=== PATIENT | female | born 1990 | race Caucasian/White ===

== ENCOUNTER 2023-02-22 07:59 | Inpatient (IN) ==
[2023-02-22] MEDS ORDERED: LIDOCAINE 1% LOCAL 20 ML VIAL INFIL PRN (08:01)
[2023-02-22] MEDS ORDERED: OXYTOCIN 30 UNITS/500 ML BAG IV PRN (08:01)
[2023-02-22 08:43] LABS: Hematocrit (blood only) 41.8 % (37.0-47.0); Hemoglobin 15.2 g/dl (12.0-16.0); Mean Corpuscular Hemoglobin 31.5 pg (25.0-34.0); Mean Corpuscular Hgb Conc 36.4 g/dL (32.0-36.0); Mean Corpuscular Volume 86.7 fL (80.0-100.0); Mean Platelet Volume 11.6 fL (9.4-12.4); Platelet Count 180 K/uL (130-400); RDW Coefficient of Variation 13.6 % (11.5-14.5); RDW Standard Deviation 42.8 fL (36.4-46.3); Red Blood Count 4.82 M/uL (4.20-5.40); White Blood Count 11.72 K/ul (4.8-10.8)
[2023-02-22] MEDS: LACTATED RINGER'S 1,000 ML IV PRN ×3 (09:43→22:04)
[2023-02-22] MEDS: OXYTOCIN 30 UNITS/500 ML BAG IV PRN (09:44)
--- NOTE | 2023-02-22 10:38 | History & Physical Report ---
Date of Service February 22, 2023 Assessment & Plan (1) Insulin controlled gestational diabetes mellitus (GDM) during : Plan: IUP at 39-6/7 weeks who presents for induction of labor because of GDM on insulin. BSG's Q 2hrs while in labor. Cervical balloon delivered early this morning, and we will begin Pitocin induction of labor. Patient is hoping to have an unmedicated delivery however if epidural analgesia is requested we will accommodate her. Anticipate vaginal . Admission and Anticipated Discharge Date Admission Date: February 22, 2023 History of Present Illness Primary Care Provider: MOLLY Mcpherson Patient is a 32-year-old 1 P0 female EDC of 02/23/2023 who presents for induction of labor because of GDM on insulin. Blood sugar sugars have been well controlled during the and testing has been reassuring. The infant is in the 97th percentile for estimated weight on the most recent growth scan. The was also complicated by polyhydramnios But it is in the mild range. GBS is negative. She received cervical balloon last evening for unfavorable cervix. The balloon delivered this morning at approximately 830. Allergies Allergy/AdvReac Type Severity Reaction Status Date / Time No Known Allergies Allergy Verified 02/21/23 10:41 Home Medications Medication Instructions Recorded Confirmed Type prenat.vits,aliza,[id number] 1 tab PO DAILY 07/01/22 02/22/23 History acetone (urine) test (Ketone Urine #50 ea 10/08/22 02/21/23 Rx Test strips) blood sugar diagnostic (OneTouch #150 ea 10/08/22 02/21/23 Rx Verio test strips) blood-glucose meter (OneTouch #1 ea 10/08/22 02/21/23 Rx Verio Reflect Meter) lancets 33 gauge (OneTouch Delica #150 ea 10/08/22 02/21/23 Rx Lancets) pen needle, diabetic 32 gauge x #100 ea 10/13/22 02/21/23 Rx 5/32" (BD Yolette 2nd Gen Pen Needle) insulin NPH isoph U-100 human 100 10 unit (0.1 mL) subcut .COMPLEX 10/15/22 02/22/23 Rx unit/mL (3 mL) subcutaneous pen #15 mL (Novolin N FlexPen) Patient History Medical History (Updated 02/22/23 @ 08:13 by Gudelia Villagomez RN) Chronic cholecystitis Temporomandibular joint disorder + clicking, hx of locking ("months ago") Surgical History Hx laparoscopic cholecystectomy (05/28/21) Laparoscopic Cholecystectomy Dr. Yoo 05/28/2021 [place] teeth extracted Family History (Updated 02/22/23 @ 08:18 by Gudelia Villagomez RN) Mother Ovarian cancer Diabetes Hypertension Stroke Father Hypertension Social History (Updated 07/01/22 @ 10:47 by Yenni Babcock) Smoking Status: Never smoker Second Hand Exposure: Yes ( A CHILD); Do You Dip or Chew Tobacco: No; Hx Alcohol Use: Yes Alcohol type: beer and hard liquor Hx Substance Use: No Preferred Language: Citizen Of [place] Communication Ability: Effective Visual Impairment: No Limitations Python Django Developer Required: No Beliefs That Will Affect Care: None marital status: marital status details: Prince [phone] Current Living Situation: Spouse Current Living Situation Comment: lives with spouse, no pets. current occupational status: employed current occupation: Ortho How many Children do You have: 0 Other Information That Helps Us Care for You: No Feels Safe at Home: Yes Safety Concerns: Feels Safe At This Time Assistive Devices: None Review of Systems All systems reviewed & are unremarkable except as noted in HPI & below Physical Exam Constitutional: WD/WN, vitals as above Psychiatric: A+Ox3, euthymic affect Genitourinary: OB Exam Abdomen: + vertex and + estimated weight (8-9 pounds); no irregular contractions Manual OB Exam: + cervical dilation 3 cm, + cervical effacement 70% and + station -2 OB Exam Monitor Tracing: + external FHT monitor used, + external uterine monitor used, + category I and + normal FHT variability Results & Data Vital Signs (Past 12 Hours) Vital Signs Temp Pulse Resp BP 02/22/23 08:21 98.2 F 02/22/23 10:15 18 02/22/23 10:15 18 02/22/23 09:46 100 H 121/69 02/22/23 08:26 112 H 113/71 Coding Level of Care Code None Diagnoses Insulin controlled gestational diabetes mellitus (GDM) during O24.414
[2023-02-22] MEDS ORDERED: BUTORPHANOL TARTRATE 1 MG/ML VIAL IV PRN (19:34)
[2023-02-22] MEDS ORDERED: fentaNYL citrate PF 100 MCG/2 ML VIAL ONE (22:14)
[2023-02-22] MEDS ORDERED: LIDOCAINE 2%/EPINEPHRINE 1:200,000 20 ML PF ONE (22:14)
[2023-02-22] MEDS ORDERED: SODIUM CHLORIDE 0.9% PF INJ 10 ML VIAL ONE (22:14)
[2023-02-22] MEDS ORDERED: ePHEDrine sulfate 50 MG/ML AMP ONE (22:14)
[2023-02-22] MEDS ORDERED: BUPIVACAINE 0.25% PF 30 ML VIAL ONE (22:14)
[2023-02-22] MEDS ORDERED: fentaNYL 2MCG/ML ROPIVACAINE 1.25MG/ML 100 ML BAG EPI ONE (22:15)
[2023-02-22] MEDS ORDERED: NALOXONE HCL 0.4 MG/1 ML VIAL/CARP IV PRN (22:32)
[2023-02-22] MEDS ORDERED: fentaNYL citrate PF 100 MCG/2 ML VIAL EPI STA (22:32)
[2023-02-22] MEDS ORDERED: BUPIVACAINE 0.25% PF 30 ML VIAL EPI STA (22:32)
[2023-02-22] MEDS ORDERED: fentaNYL 2MCG/ML ROPIVACAINE 1.25MG/ML 100 ML BAG EPI PRN (22:32)
[2023-02-22] MEDS ORDERED: NALBUPHINE HCL INJ 10 MG/ML AMP IV PRN (22:32)
[2023-02-22] MEDS ORDERED: NALOXONE HCL 1 MG in SODIUM CHLORIDE 0.9% 1000ML 1,000 ML IV PRN (22:32)
[2023-02-22] MEDS ORDERED: fentaNYL citrate PF 100 MCG/2 ML VIAL EPI PRN (22:32)
[2023-02-22] MEDS ORDERED: ONDANSETRON INJ 2 MG/ML 2 ML VIAL IV PRN (22:32)
[2023-02-22] MEDS ORDERED: ROPIVACAINE 0.5% PF 5 MG/ML 20 ML VIAL EPI PRN (22:32)
[2023-02-22] MEDS ORDERED: LIDOCAINE 2% MPF LOCAL 5 ML VIAL EPI PRN (22:32)
[2023-02-22] MEDS ORDERED: BUPIVACAINE 0.25% PF 30 ML VIAL EPI PRN (22:32)
[2023-02-22] MEDS ORDERED: SODIUM CHLORIDE 0.9% PF INJ 10 ML VIAL EPI STA (22:32)
[2023-02-22] MEDS ORDERED: LIDOCAINE 2%/EPINEPHRINE 1:200,000 20 ML PF EPI STA (22:32)
[2023-02-22] MEDS ORDERED: SODIUM CHLORIDE 0.9% PF INJ 10 ML VIAL EPI PRN (22:32)
[2023-02-22] MEDS ORDERED: ePHEDrine sulfate 50 MG/ML AMP IV PRN (22:32)
[2023-02-22] MEDS ORDERED: diphenhydrAMINE 50 MG/ML VIAL IV PRN (22:32)
--- NOTE | 2023-02-22 22:32 | Anesthesiology Consultation ---
Date of Service February 22, 2023 Assessment & Plan ASA ASA3 Proposed Anesthesia Anesthesia Type: Labor Epidural Risk / Benefits Reviewed With: PT / POA / Parent / Guardian, Accepts Plan and Informed Consent Obtained History Height/Weight Height: 5 ft 5 in Weight: 114.759 kg Allergies Allergy/AdvReac Type Severity Reaction Status Date / Time No Known Allergies Allergy Verified 02/21/23 10:41 Medications Home Medications Medication Instructions Recorded Confirmed Last Taken prenat.vits,aliza,[id number] 1 tab PO DAILY 07/01/22 02/22/23 02/21/23 21:00 acetone (urine) test (Ketone Urine #50 ea 10/08/22 02/21/23 Unknown Test strips) blood sugar diagnostic (OneTouch #150 ea 10/08/22 02/21/23 Unknown Verio test strips) blood-glucose meter (OneTouch #1 ea 10/08/22 02/21/23 Unknown Verio Reflect Meter) lancets 33 gauge (OneTouch Delica #150 ea 10/08/22 02/21/23 Unknown Lancets) pen needle, diabetic 32 gauge x #100 10/13/22 02/21/23 Unknown /32" (BD Yolette 2nd Gen Pen Needle) insulin NPH isoph U-100 human 100 10 unit (0.1 mL) subcut .COMPLEX 10/15/22 02/22/23 02/21/23 21:00 unit/mL (3 mL) subcutaneous pen #15 mL (Novolin N FlexPen) Active Medications Generic Name Dose Route Start Last Admin Trade Name Freq PRN Reason Stop Dose Admin Butorphanol Tartrate 1 mg 02/22/23 19:34 02/22/23 19:55 Butorphanol Tartrate 1 Mg/Ml Vial IV 03/24/23 19:33 1 mg Q2H PRN Administration Pain Oxytocin 30 units in 500 mls @ 15 mls/hr 02/22/23 08:01 02/22/23 18:56 Pitocin IV 02/24/23 08:00 0.9 units/hr .Q24H PRN 15 mls/hr Labor Induction/Augmentation Titration Protocol 0.9 UNITS/HR Lactated Ringer's 1,000 mls @ 125 mls/hr 02/22/23 08:01 02/22/23 22:43 Lr IV 02/24/23 08:00 125 mls/hr .Q8H PRN Infusion L&D Protocol Protocol Past Medical History Medical History Chronic cholecystitis Temporomandibular joint disorder + clicking, hx of locking ("months ago") Exercise / Class Metabolic Activity II 4-5 Yardwork/Stairs/Walk up hill Past Family History Family History Mother Ovarian cancer Diabetes Hypertension Stroke Father Hypertension Past Surgical History Surgical History Hx laparoscopic cholecystectomy (05/28/21) Laparoscopic Cholecystectomy Dr. Yoo 05/28/2021 [place] teeth extracted Past Anesthesia History No Hx of Anesthesia Complications and No Family Hx of Anesthesia Complications History of PONV No Hx of PONV and No Hx of Motion Sickness Social History Smoking Status: Never smoker Do You Dip or Chew Tobacco: No Hx Alcohol Use: Yes Alcohol type: beer and hard liquor alcohol intake frequency: a few times a month Hx Substance Use: No Review of Systems denies fever/cough/ colds/ chest pain/ SOB/ QUIANA denies QUIANA Physical Exam Vital Signs Last Vital Signs Temp 36.7 C 02/22/23 21:00 Pulse 88 02/22/23 23:12 Resp 18 02/22/23 21:00 BP 102/59 L 02/22/23 23:12 Pulse Ox 99 02/22/23 23:12 ENMT Mouth: no TMJ abnormality and no dentition abnormality Thyromental Distance: > or= 3.5 Finger Breadths Mallampati Class: II Neck neck extension not limited Respiratory normal respiratory effort; no respiratory distress Auscultation: lungs clear to auscultation bilaterally Cardiovascular Rate/Rhythm: regular rate and regular rhythm Neurologic moves all extremities Psychiatric Orientation: alert and oriented x 3 Testing Laboratory Results 02/22/23 08:17 Blood Type B Positive 02/22/23 08:17 Antibody Screen NEGATIVE 02/22/23 08:17 02/22/23 02/22/23 20:58 18:39 POC Glucose 80 84
[2023-02-23] MEDS: LACTATED RINGER'S 1,000 ML IV PRN ×2 (01:51→11:18)
[2023-02-23] MEDS ORDERED: CALCIUM CARBONATE 500 MG CHEWABLE TAB PO ONE (05:48)
[2023-02-23] MEDS: OXYTOCIN 30 UNITS/500 ML BAG IV PRN (07:15)
--- NOTE | 2023-02-23 07:20 | Anesthesia Procedure Note ---
Date of Service February 23, 2023 Anesthesia Epidural Re-Dose Vital Signs Temp Pulse Resp BP Pulse Ox 36.9 C 129 H 18 113/63 99 02/23/23 05:00 02/23/23 07:24 02/23/23 06:30 02/23/23 07:24 02/23/23 07:22 Notes Pain Intensity: 4 Dilatation (cm): 8.0 Effacement (%): 100 Called by nursing to evaluate epidural as the patient is having increased pain. The epidural was re-dosed with the following medications (all medications via epidural route) after negative aspiration of the epidural catheter for CSF/HEME 1.2% lidocaine and 0.2% ropivacaine 7ml After Epidural Re-Dose Mental Status: alert / awake / arousable Pain: improving with treatment Airway Patency, RR, SpO2: stable & adequate BP & HR: stable & adequate
[2023-02-23] MEDS ORDERED: SODIUM CHLORIDE 0.9% 250 ML IV PRN (07:56)
[2023-02-23] MEDS ORDERED: ROPIVACAINE 0.5% 5 MG/ML 30 ML VIAL ONE (09:14)
[2023-02-23] MEDS ORDERED: LIDOCAINE 2%/EPINEPHRINE 1:200,000 20 ML PF ONE ×2 (09:14→11:39)
[2023-02-23] MEDS ORDERED: AZITHROMYCIN 500 MG in DEXTROSE 5% 250 ML IV STA (11:04)
--- NOTE | 2023-02-23 11:04 | Obstetrical Progress Note ---
Date of Service February 23, 2023 Assessment & Plan Admission and Anticipated Discharge Date Admission Date: February 22, 2023 Nisha Ge is a 32-year-old G1, P0 currently at 40 weeks gestational age presented for induction of labor yesterday. Patient has a cervical Briggs placed on Tuesday. She was started on oxytocin yesterday morning and underwent rupture of membranes. Patient progressed into labor to 8 cm with still high station noted. No descent has been significantly appreciated. Attempt at maternal positioning to improve descent has not been beneficial. Patient is requesting proc eeding with a primary section due to maternal exhaustion. There is also been a little descent noted and likelihood of a vaginal delivery is looking remote. Discussed the procedure in detail including risks and benefits. We discussed increased risks associated with section following induction of labor. Consent forms reviewed and signed. We will give patient Ancef and azithromycin. Results & Data Vital Signs (Past 12 Hours) Vital Signs Temp Pulse Resp BP Pulse Ox 02/23/23 10:57 116 H 100 02/23/23 10:52 118 H 99 02/23/23 10:47 116 H 98 02/23/23 10:42 109 H 100 02/23/23 10:37 113 H 100 02/23/23 10:30 20 02/23/23 10:30 20 02/23/23 10:32 118 H 100 02/23/23 10:27 111 H 100 02/23/23 10:00 20 02/23/23 10:00 20 02/23/23 10:05 37.8 C H 02/23/23 10:22 111 H 99 02/23/23 10:17 107 H 100 02/23/23 10:12 110 H 100 02/23/23 10:07 107 H 100 02/23/23 10:08 105 H 127/71 02/23/23 10:02 114 H 100 02/23/23 09:57 109 H 100 02/23/23 09:30 20 02/23/23 09:30 20 02/23/23 09:52 121 H 100 02/23/23 09:47 119 H 99 02/23/23 09:42 117 H 100 02/23/23 09:37 115 H 100 02/23/23 09:32 113 H 100 02/23/23 09:31 115 H 119/73 02/23/23 09:27 118 H 100 08/16/23 09:00 18 02/23/23 09:00 18 02/23/23 09:22 103 H 100 02/23/23 09:17 120 H 100 02/23/23 09:12 104 H 100 02/23/23 09:11 92 H 111/60 02/23/23 09:07 102 H 100 02/23/23 09:02 87 100 02/23/23 08:57 84 100 02/23/23 08:52 92 H 100 02/23/23 08:51 93 H 110/67 02/23/23 08:47 88 100 02/23/23 08:42 96 H 100 02/23/23 08:39 18 02/23/23 08:39 37.4 C 18 02/23/23 08:37 113 H 100 02/23/23 08:32 122 H 100 02/23/23 08:31 134 H 119/68 02/23/23 08:27 131 H 100 02/23/23 08:22 118 H 100 02/23/23 08:17 109 H 100 02/23/23 08:12 89 100 02/23/23 08:00 18 02/23/23 08:00 18 02/23/23 08:07 95 H 100 02/23/23 08:02 105 H 100 02/23/23 07:57 125 H 100 02/23/23 07:52 128 H 100 02/23/23 07:47 106 H 100 02/23/23 07:30 18 02/23/23 07:30 18 02/23/23 07:42 122 H 100 02/23/23 07:09 18 02/23/23 07:09 36.9 C 18 02/23/23 07:37 120 H 100 02/23/23 07:32 122 H 100 02/23/23 07:31 137 H 107/56 L 02/23/23 07:27 135 H 117/55 L 99 02/23/23 07:24 129 H 113/63 02/23/23 07:22 99 02/23/23 07:22 117 H 02/23/23 07:22 114 H 117/74 02/23/23 07:20 112 H 115/64 02/23/23 07:17 124 H 100 02/23/23 07:14 118 H 109/58 L 02/23/23 07:12 118 H 100 02/23/23 07:07 119 H 99 02/23/23 07:02 121 H 100 02/23/23 06:58 142 H 122/75 02/23/23 06:57 112 H 100 02/23/23 06:52 97 H 99 02/23/23 06:47 114 H 100 02/23/23 06:30 18 02/23/23 06:30 18 02/23/23 06:44 108 H 125/77 02/23/23 06:42 103 H 100 02/23/23 06:37 137 H 100 02/23/23 06:32 134 H 100 02/23/23 06:29 133 H 115/78 02/23/23 06:27 142 H 100 02/23/23 06:22 100 H 100 02/23/23 06:00 20 02/23/23 06:00 20 02/23/23 06:17 109 H 100 02/23/23 06:14 117 H 117/81 02/23/23 06:12 115 H 97 02/23/23 06:07 120 H 100 02/23/23 06:02 111 H 100 02/23/23 05:58 112 H 110/56 L 02/23/23 05:57 96 H 99 02/23/23 05:52 114 H 99 02/23/23 05:30 18 02/23/23 05:30 18 02/23/23 05:47 91 H 99 02/23/23 05:43 111 H 113/58 L 02/23/23 05:42 101 H 100 02/23/23 05:37 96 H 100 02/23/23 05:32 90 99 02/23/23 05:29 96 H 119/66 02/23/23 05:27 113 H 99 02/23/23 05:22 114 H 99 02/23/23 05:17 100 H 99 02/23/23 05:13 96 H 97/52 L 02/23/23 05:12 101 H 98 02/23/23 05:07 93 H 99 02/23/23 05:00 18 02/23/23 05:00 36.9 C 18 02/23/23 05:02 98 H 100 02/23/23 04:30 20 02/23/23 04:30 20 02/23/23 04:59 101 H 107/56 L 02/23/23 04:57 94 H 99 02/23/23 04:52 96 H 99 02/23/23 04:47 101 H 100 02/23/23 04:42 107 H 100 02/23/23 04:37 116 H 100 02/23/23 04:32 114 H 100 02/23/23 04:28 107 H 138/80 02/23/23 04:27 106 H 100 02/23/23 04:22 97 H 98 02/23/23 04:17 97 H 100 02/23/23 04:14 99 H 130/70 02/23/23 04:12 98 H 98 02/23/23 04:07 96 H 99 02/23/23 04:02 115 H 99 02/23/23 03:58 100 H 111/64 02/23/23 03:57 91 H 99 02/23/23 03:52 104 H 100 02/23/23 03:47 85 99 02/23/23 03:43 85 110/61 02/23/23 03:42 84 98 02/23/23 03:37 79 98 02/23/23 03:30 18 02/23/23 03:30 18 02/23/23 03:32 99 H 100 02/23/23 03:28 88 108/61 02/23/23 03:27 79 98 02/23/23 03:22 86 98 02/23/23 03:17 81 99 02/23/23 03:13 88 102/57 L 02/23/23 03:12 82 99 02/23/23 03:07 99 H 108/55 L 99 02/23/23 03:02 83 98 02/23/23 03:00 36.9 C 83 18 272/185 H 02/23/23 02:57 78 99 02/23/23 02:52 81 99 02/23/23 02:47 83 100 02/23/23 02:42 86 99 02/23/23 02:30 18 02/23/23 02:30 18 02/23/23 02:37 78 100 02/23/23 02:32 87 100 02/23/23 01:57 18 02/23/23 01:57 18 02/23/23 02:30 106 H 126/78 87 L 02/23/23 02:27 90 99 02/23/23 02:22 100 H 100 02/23/23 02:17 125 H 100 02/23/23 02:14 87 121/67 02/23/23 02:12 122 H 100 02/23/23 02:07 100 H 100 02/23/23 02:02 114 H 100 02/23/23 01:59 122 H 109/83 02/23/23 01:57 101 H 100 02/23/23 01:52 92 H 100 02/23/23 01:47 110 H 100 02/23/23 01:44 80 109/51 L 02/23/23 01:42 81 99 02/23/23 01:30 18 02/23/23 01:30 18 02/23/23 01:37 74 100 02/23/23 01:00 18 02/23/23 01:00 36.8 C 18 02/23/23 01:32 80 100 02/23/23 01:28 70 98/53 L 02/23/23 01:27 73 97 02/23/23 01:22 75 99 02/23/23 01:17 84 98 02/23/23 01:15 78 102/53 L 02/23/23 01:00 18 02/23/23 01:00 18 02/23/23 01:12 97 H 97 02/23/23 01:07 69 97 02/23/23 01:02 68 99 02/23/23 00:59 80 94/52 L 02/23/23 00:57 70 98 02/23/23 00:52 70 99 02/23/23 00:47 71 100 02/23/23 00:44 81 93/66 L 02/23/23 00:42 75 100 02/23/23 00:37 77 100 02/23/23 00:32 77 100 02/23/23 00:30 85 100/59 L 02/23/23 00:27 90 100 02/23/23 00:22 108 H 100 02/23/23 00:17 103 H 100 02/23/23 00:15 90 123/61 02/23/23 00:12 93 H 100 02/23/23 00:00 18 02/23/23 00:00 18 02/23/23 00:07 81 99 02/23/23 00:02 98 H 100 02/22/23 23:59 82 99/56 L 02/22/23 23:57 71 99 02/22/23 23:30 18 02/22/23 23:30 18 02/22/23 23:52 75 99 02/22/23 23:47 83 99 02/22/23 23:45 89 96/52 L 02/22/23 23:42 76 99 02/22/23 23:37 85 99 02/22/23 23:32 72 99 02/22/23 23:29 91 H 98/53 L 02/22/23 23:20 18 02/22/23 23:20 18 02/22/23 23:27 87 100 02/22/23 23:22 106 H 99 02/22/23 23:05 18 02/22/23 23:05 36.8 C 18 02/22/23 23:17 111 H 99 02/22/23 23:12 88 102/59 L 99 02/22/23 23:10 104 H 101/59 L 02/22/23 23:07 100 H 98 02/22/23 23:08 99 H 106/62 02/22/23 23:06 103 H 113/65 02/22/23 23:04 99 H 113/58 L 02/22/23 23:02 89 99 02/22/23 23:03 101 H 125/64 02/22/23 23:01 96 H 158/63 H PG Care Time/CCT Total # of Minutes Spent Total Time Spent with Patient: Total time spent is greater than 50% in coordination of care (as documented) at patient's floor/unit and/or counseling patient: Coding Level of Care Code None Diagnoses
[2023-02-23] MEDS ORDERED: CITRIC ACID/SODIUM CITRATE 15 ML UDC ONE (11:08)
[2023-02-23] MEDS ORDERED: CITRIC ACID/SODIUM CITRATE 15 ML UDC PO STA (11:08)
[2023-02-23] MEDS ORDERED: PHENYLEPHRINE 100MCG/ML 5ML SYR ONE (11:38)
[2023-02-23] MEDS ORDERED: ePHEDrine sulfate 50 MG/ML SYR ONE (11:38)
[2023-02-23] MEDS ORDERED: MoRPHine SULFATE PF 1 MG/ML 10 ML AMP/VIAL ONE (11:41)
[2023-02-23] MEDS ORDERED: MIDAZOLAM HCL 1 MG/ML 2ML VIAL ONE (11:46)
[2023-02-23] MEDS ORDERED: MEPERIDINE HCL 25 MG/ML CARP/VIAL ONE (11:51)
[2023-02-23] MEDS ORDERED: MoRPHine SULFATE 2 MG/ML CARP IV PRN (12:03)
[2023-02-23] MEDS ORDERED: ePHEDrine sulfate 50 MG/ML AMP IV PRN (12:03)
[2023-02-23] MEDS ORDERED: diphenhydrAMINE 50 MG/ML VIAL IV PRN (12:03)
[2023-02-23] MEDS ORDERED: LACTATED RINGER'S 500 ML IV PRN (12:03)
[2023-02-23] MEDS ORDERED: NALOXONE HCL 0.4 MG/1 ML VIAL/CARP IV PRN (12:03)
[2023-02-23] MEDS ORDERED: ONDANSETRON INJ 2 MG/ML 2 ML VIAL IV PRN ×2 (12:03→12:29)
[2023-02-23] MEDS ORDERED: PROMETHAZINE HCL 12.5 MG in SODIUM CHLORIDE 0.9% 50 ML IV PRN (12:03)
[2023-02-23] MEDS ORDERED: NALOXONE HCL 0.08 MG in SYRINGE 1.8 ML IV PRN (12:03)
[2023-02-23] MEDS ORDERED: NALBUPHINE HCL INJ 10 MG/ML AMP IV PRN (12:03)
[2023-02-23] MEDS ORDERED: NALOXONE HCL 1 MG in SODIUM CHLORIDE 0.9% 1000ML 1,000 ML IV PRN (12:03)
[2023-02-23] MEDS ORDERED: MoRPHine SULFATE PF 1 MG/ML 10 ML AMP/VIAL EPI ONE (12:03)
[2023-02-23] MEDS ORDERED: NO NARCOTICS OR SEDATIVES SCH (12:15)
[2023-02-23] MEDS ORDERED: SODIUM CHLORIDE 0.9% 1000ML 1,000 ML IV SCH (12:15)
[2023-02-23] MEDS ORDERED: DC INTRASPINAL MORPHINE SCH (12:15)
[2023-02-23] MEDS ORDERED: SODIUM CHLORIDE 0.9% PF INJ 10 ML VIAL ONE (12:17)
[2023-02-23] MEDS ORDERED: OXYTOCIN 10 UNITS/ML VIAL ONE ×5 (12:24)
[2023-02-23] MEDS ORDERED: BENZOCAINE 20% SPRY 85 APPLN/85 GM CAN EXT PRN (12:29)
[2023-02-23] MEDS ORDERED: MAGNESIUM HYDROXIDE SUSP 30 ML UDC PO PRN (12:29)
[2023-02-23] MEDS ORDERED: HYDROCORTISONE ACETATE 25 MG SUPP PR PRN (12:29)
[2023-02-23] MEDS ORDERED: DIPHTHERIA/TETANUS/PERTUSSIS Vaccine (Tdap, Age 7+yrs) 0.5mL SYR/VL IM ONE (12:29)
[2023-02-23] MEDS ORDERED: SENNA 8.6 MG TAB PO PRN (12:29)
--- NOTE | 2023-02-23 12:35 | Post Operative Brief Note ---
PG Immediate Post Op with CF Date of Surgery February 23, 2023 Pre & Post Diagnosis Operation Date: 02/23/23 11:15 <No data on this case meets the specified criteria> I identified the patient and participated in the time-out.: Yes Procedure Operation Date: 02/23/23 11:15 Actual Procedures p Section in LD with result of live male child at 1145 - Júnior Medina MD Surgeon Júnior Medina MD Nuclear Engineer OR staff Estimated Blood Loss 600 Findings Consistent with Post-Op Diagnosis Specimens Specimen Description: A: Placenta B: Cord Blood C: Cord Gases Drains Briggs Catheter (placed in patients room prior to OR) Complications None OB Procedure charges OB Charges [id number]
[2023-02-23 12:36] LABS: Base Excess Cord Venous Blood -7.5 mEq/L (-7.7-1.9); Cord Venous Blood HCO3 18 mmol/L (18.4-26.8); Cord Venous Blood PCO2 34 mmHg (30.4-57.2); Cord Venous Blood PO2 41 mmHg (14.1-43.3); Cord Venous Blood pH 7.32 (7.20-7.44); O2 Saturation Cord Venous Bld 64.2 % (<68)
[2023-02-23 12:37] LABS: CO2 Cord Arterial Blood 51 mmHg (39.1-73.5); HCO3 Cord Arterial Blood 20 mmol/L (19.7-28.5); Oxygen Sat Cord Arterial Blood < 60.0 % (<60); PO2 Cord Arterial Blood 9 mmHg (4.1-31.7); pH Cord Arterial Blood 7.21 (7.1-7.38)
--- NOTE | 2023-02-23 12:40 | Operative Report ---
PG Post Operative Report Pre & Post Diagnosis Operation Date: 02/23/23 11:15 Single intrauterine at 40 weeks 0 days gestational age, insulin- dependent gestational diabetes, mild polyhydramnios, suspected large for gestational age , request for section following induction of labor I identified the patient and participated in the time-out.: Yes Procedure Operation Date: 02/23/23 11:15 Actual Procedures p Section in LD with result of live male child at 1145 - Júnior Medina MD Surgeon Júnior Medina MD [employer] OR staff Estimated Blood Loss 600 Findings Consistent with Post-Op Diagnosis Specimens None Description of Procedure The patient was taken to the operating room after consents were ensured. Upon presentation, she was properly identified. Spinal anesthesia was obtained without difficulty. The patient was then prepped and draped in normal sterile fashion. Preprocedural timeout was performed. A Pfannenstiel incision was then made with a knife at the prior location. This was carried down to underlying fascia with the Bovie. The fascia was nicked at the midline with a knife and extended laterally with pickups and Erazo scissors. The superior aspect of the fascia was grasped with Kochers x2, elevated off the underlying rectus muscles with blunt dissection and Erazo scissors. Inferior aspect of the fascia was grasped with Kochers x2, elevated off the underlying rectus muscles using blunt dissection. The midline was then entered bluntly, placed on stretch to provide adequate room for delivery. The bladder blade was inserted. A low transverse uterine incision was then made with a knife. The uterine cavity and amniotic cavity entered bluntly, placed on stretch to provide adequate room for delivery. Head of the delivered through the hysterotomy without difficulty, body and shoulders quickly followed. Cord was then double clamped and cut. taken to the waiting nursery staff. Cord blood was obtained. Attention was then turned to delivery of the placenta, which was delivered intact, 3-vessel cord, with gentle cord traction and uterine massage. The uterus was then exteriorized, wrapped in a wet lap and several passes were made, removing any remaining membranes with a dry lap. The hysterotomy was then reapproximated with 0 Vicryl continuous running locked sti tch. The hysterotomy was then reinspected and noted to have mild bleeding, which was then cauterized and pressure was applied and hemostasis was noted. The uterus was then returned to the maternal abdomen. The hemostasis was then noted. The muscles, subcutaneous and fascial layers were inspected to be hemostatic. The fascia was reapproximated with 0 Vicryl in continuous running stitch starting at each lateral apices and continued to the midline. The subcutaneous layers were reapproximated with 2-0 plain and continuous running stitch in 2 layers. The skin was reapproximated with 3-0 Vicryl with a subcuticular stitch. Needle, sponge, and instrument counts were correct at the completion of the case. Both mother and stable in the immediate post-delivery period. I attest to the content of the Intraoperative Record and any orders documented therein. Any exceptions are noted below.
[2023-02-23] MEDS: KETOROLAC 30 MG/ML VIAL IV PRN (12:47)
[2023-02-23] MEDS: OXYTOCIN 20 UNITS in LACTATED RINGER'S 1,000 ML IV SCH ×2 (14:57→23:33)
[2023-02-23] MEDS: SIMETHICONE 80 MG CHEW PO SCH ×3 (15:01→20:35)
--- NOTE | 2023-02-23 15:10 | Anesthesiology Progress Note ---
Date of Service February 23, 2023 Anesthesia Post Procedure Vital Signs Vital Signs: Temp Pulse Resp BP Pulse Ox 02/23/23 14:02 105 H 18 129/61 02/23/23 13:22 18 02/23/23 13:12 18 02/23/23 13:02 18 02/23/23 12:52 18 02/23/23 13:33 18 02/23/23 12:42 18 02/23/23 12:32 37.2 C 115 H 20 98 02/23/23 11:20 37.5 C 02/22/23 19:13 36.7 C 18 02/23/23 15:03 100 H 96 02/23/23 14:58 96 02/23/23 14:58 109 H 02/23/23 14:58 100 H 130/59 L 02/23/23 14:53 105 H 97 02/23/23 14:52 106 H 132/59 L 02/23/23 14:48 103 H 96 02/23/23 14:45 95 H 94 02/23/23 14:43 98 H 95 02/23/23 14:42 102 H 139/63 02/23/23 14:38 98 H 96 02/23/23 14:33 107 H 96 02/23/23 14:32 109 H 99/57 L 02/23/23 14:28 111 H 96 02/23/23 14:23 106 H 96 02/23/23 14:22 112 H 91/35 L 02/23/23 14:18 109 H 95 02/23/23 14:13 105 H 96 02/23/23 14:12 105 H 129/61 02/23/23 14:08 108 H 96 02/23/23 14:03 109 H 95 02/23/23 14:02 107 H 126/58 L 02/23/23 13:58 110 H 95 02/23/23 13:53 102 H 126/56 L 96 02/23/23 13:48 104 H 96 02/23/23 13:43 106 H 96 02/23/23 13:42 96 H 117/65 02/23/23 13:38 109 H 97 02/23/23 13:33 98 H 96 02/23/23 13:32 103 H 114/58 L 02/23/23 13:28 105 H 96 02/23/23 13:23 106 H 97 08/16/23 13:22 105 H 117/59 L 02/23/23 13:18 108 H 97 02/23/23 13:13 106 H 98 02/23/23 13:12 117 H 118/66 02/23/23 13:08 115 H 98 02/23/23 13:02 100 02/23/23 13:02 101 H 02/23/23 13:02 101 H 110/56 L 02/23/23 12:57 102 H 100 02/23/23 12:52 109 H 97/54 L 99 02/23/23 12:47 102 H 99 02/23/23 12:42 100 02/23/23 12:42 107 H 02/23/23 12:42 103 H 96/52 L 02/23/23 12:37 102 H 100 02/23/23 12:32 111 H 92/50 L 02/23/23 11:22 122 H 100 02/23/23 11:20 127 H 80/49 L 02/23/23 11:17 119 H 87/51 L 99 02/23/23 11:12 110 H 99 02/23/23 11:11 108 H 108/59 L 02/23/23 11:07 112 H 100 02/23/23 11:02 115 H 100 02/23/23 10:57 116 H 100 02/23/23 10:52 118 H 99 02/23/23 10:47 116 H 98 02/23/23 10:42 109 H 100 02/23/23 10:37 113 H 100 02/23/23 10:30 20 02/23/23 10:30 20 02/23/23 10:32 118 H 100 02/23/23 10:27 111 H 100 02/23/23 10:00 20 02/23/23 10:00 20 02/23/23 10:05 37.8 C H 02/23/23 10:22 111 H 99 02/23/23 10:17 107 H 100 02/23/23 10:12 110 H 100 02/23/23 10:07 107 H 100 02/23/23 10:08 105 H 127/71 02/23/23 10:02 114 H 100 02/23/23 09:57 109 H 100 02/23/23 09:30 20 02/23/23 09:30 20 02/23/23 09:52 121 H 100 02/23/23 09:47 119 H 99 02/23/23 09:42 117 H 100 02/23/23 09:37 115 H 100 02/23/23 09:32 113 H 100 02/23/23 09:31 115 H 119/73 02/23/23 09:27 118 H 100 02/23/23 09:00 18 02/23/23 09:00 18 02/23/23 09:22 103 H 100 02/23/23 09:17 120 H 100 02/23/23 09:12 104 H 100 02/23/23 09:11 92 H 111/60 02/23/23 09:07 102 H 100 02/23/23 09:02 87 100 02/23/23 08:57 84 100 02/23/23 08:52 92 H 100 02/23/23 08:51 93 H 110/67 02/23/23 08:47 88 100 02/23/23 08:42 96 H 100 02/23/23 08:39 18 02/23/23 08:39 37.4 C 18 02/23/23 08:37 113 H 100 02/23/23 08:32 122 H 100 02/23/23 08:31 134 H 119/68 02/23/23 08:27 131 H 100 02/23/23 08:22 118 H 100 02/23/23 08:17 109 H 100 02/23/23 08:12 89 100 02/23/23 08:00 18 02/23/23 08:00 18 02/23/23 08:07 95 H 100 02/23/23 08:02 105 H 100 02/23/23 07:57 125 H 100 02/23/23 07:52 128 H 100 02/23/23 07:47 106 H 100 02/23/23 07:30 18 02/23/23 07:30 18 02/23/23 07:42 122 H 100 02/23/23 07:09 18 02/23/23 07:09 36.9 C 18 02/23/23 07:37 120 H 100 02/23/23 07:32 122 H 100 02/23/23 07:31 137 H 107/56 L 02/23/23 07:27 135 H 117/55 L 99 02/23/23 07:24 129 H 113/63 02/23/23 07:22 99 02/23/23 07:22 117 H 02/23/23 07:22 114 H 117/74 02/23/23 07:20 112 H 115/64 02/23/23 07:17 124 H 100 02/23/23 07:14 118 H 109/58 L 02/23/23 07:12 118 H 100 02/23/23 07:07 119 H 99 02/23/23 07:02 121 H 100 02/23/23 06:58 142 H 122/75 02/23/23 06:57 112 H 100 02/23/23 06:52 97 H 99 02/23/23 06:47 114 H 100 02/23/23 06:30 18 02/23/23 06:30 18 02/23/23 06:44 108 H 125/77 02/23/23 06:42 103 H 100 02/23/23 06:37 137 H 100 02/23/23 06:32 134 H 100 02/23/23 06:29 133 H 115/78 02/23/23 06:27 142 H 100 02/23/23 06:22 100 H 100 02/23/23 06:00 20 02/23/23 06:00 20 02/23/23 06:17 109 H 100 02/23/23 06:14 117 H 117/81 02/23/23 06:12 115 H 97 02/23/23 06:07 120 H 100 02/23/23 06:02 111 H 100 02/23/23 05:58 112 H 110/56 L 02/23/23 05:57 96 H 99 02/23/23 05:52 114 H 99 02/23/23 05:30 18 02/23/23 05:30 18 02/23/23 05:47 91 H 99 02/23/23 05:43 111 H 113/58 L 02/23/23 05:42 101 H 100 02/23/23 05:37 96 H 100 02/23/23 05:32 90 99 02/23/23 05:29 96 H 119/66 02/23/23 05:27 113 H 99 02/23/23 05:22 114 H 99 02/23/23 05:17 100 H 99 02/23/23 05:13 96 H 97/52 L 02/23/23 05:12 101 H 98 02/23/23 05:07 93 H 99 02/23/23 05:00 18 02/23/23 05:00 36.9 C 18 02/23/23 05:02 98 H 100 02/23/23 04:30 20 02/23/23 04:30 20 02/23/23 04:59 101 H 107/56 L 02/23/23 04:57 94 H 99 02/23/23 04:52 96 H 99 02/23/23 04:47 101 H 100 02/23/23 04:42 107 H 100 02/23/23 04:37 116 H 100 02/23/23 04:32 114 H 100 02/23/23 04:28 107 H 138/80 02/23/23 04:27 106 H 100 02/23/23 04:22 97 H 98 02/23/23 04:17 97 H 100 02/23/23 04:14 99 H 130/70 02/23/23 04:12 98 H 98 02/23/23 04:07 96 H 99 02/23/23 04:02 115 H 99 02/23/23 03:58 100 H 111/64 02/23/23 03:57 91 H 99 02/23/23 03:52 104 H 100 02/23/23 03:47 85 99 02/23/23 03:43 85 110/61 02/23/23 03:42 84 98 02/23/23 03:37 79 98 02/23/23 03:30 18 02/23/23 03:30 18 02/23/23 03:32 99 H 100 02/23/23 03:28 88 108/61 02/23/23 03:27 79 98 02/23/23 03:22 86 98 02/23/23 03:17 81 99 02/23/23 03:13 88 102/57 L 02/23/23 03:12 82 99 02/23/23 03:07 99 H 108/55 L 99 02/23/23 03:02 83 98 02/23/23 03:00 36.9 C 83 18 272/185 H 02/23/23 02:57 78 99 02/23/23 02:52 81 99 02/23/23 02:47 83 100 02/23/23 02:42 86 99 02/23/23 02:30 18 02/23/23 02:30 18 02/23/23 02:37 78 100 02/23/23 02:32 87 100 02/23/23 01:57 18 02/23/23 01:57 18 02/23/23 02:30 106 H 126/78 87 L 02/23/23 02:27 90 99 02/23/23 02:22 100 H 100 02/23/23 02:17 125 H 100 02/23/23 02:14 87 121/67 02/23/23 02:12 122 H 100 02/23/23 02:07 100 H 100 02/23/23 02:02 114 H 100 02/23/23 01:59 122 H 109/83 02/23/23 01:57 101 H 100 02/23/23 01:52 92 H 100 02/23/23 01:47 110 H 100 02/23/23 01:44 80 109/51 L 02/23/23 01:42 81 99 02/23/23 01:30 18 02/23/23 01:30 18 02/23/23 01:37 74 100 02/23/23 01:00 18 02/23/23 01:00 36.8 C 18 02/23/23 01:32 80 100 02/23/23 01:28 70 98/53 L 02/23/23 01:27 73 97 02/23/23 01:22 75 99 02/23/23 01:17 84 98 02/23/23 01:15 78 102/53 L 02/23/23 01:00 18 02/23/23 01:00 18 02/23/23 01:12 97 H 97 02/23/23 01:07 69 97 02/23/23 01:02 68 99 02/23/23 00:59 80 94/52 L 02/23/23 00:57 70 98 02/23/23 00:52 70 99 02/23/23 00:47 71 100 02/23/23 00:44 81 93/66 L 02/23/23 00:42 75 100 02/23/23 00:37 77 100 02/23/23 00:32 77 100 02/23/23 00:30 85 100/59 L 02/23/23 00:27 90 100 02/23/23 00:22 108 H 100 08/16/23 00:17 103 H 100 02/23/23 00:15 90 123/61 02/23/23 00:12 93 H 100 02/23/23 00:00 18 02/23/23 00:00 18 02/23/23 00:07 81 99 02/23/23 00:02 98 H 100 02/22/23 23:59 82 99/56 L 02/22/23 23:57 71 99 02/22/23 23:30 18 02/22/23 23:30 18 02/22/23 23:52 75 99 02/22/23 23:47 83 99 02/22/23 23:45 89 96/52 L 02/22/23 23:42 76 99 02/22/23 23:37 85 99 02/22/23 23:32 72 99 02/22/23 23:29 91 H 98/53 L 02/22/23 23:20 18 02/22/23 23:20 18 02/22/23 23:27 87 100 02/22/23 23:22 106 H 99 02/22/23 23:05 18 02/22/23 23:05 36.8 C 18 02/22/23 23:17 111 H 99 02/22/23 23:12 88 102/59 L 99 02/22/23 23:10 104 H 101/59 L 02/22/23 23:07 100 H 98 02/22/23 23:08 99 H 106/62 02/22/23 23:06 103 H 113/65 02/22/23 23:04 99 H 113/58 L 02/22/23 23:02 89 99 02/22/23 23:03 101 H 125/64 02/22/23 23:01 96 H 158/63 H 02/22/23 22:59 107 H 130/82 02/22/23 22:57 91 H 99 02/22/23 22:52 90 98 02/22/23 22:47 98 H 91 02/22/23 22:42 101 H 99 02/22/23 22:37 92 H 100 02/22/23 22:32 77 96 02/22/23 22:27 92 H 96 02/22/23 22:22 92 H 100 02/22/23 22:17 93 H 98 02/22/23 22:12 92 H 99 02/22/23 22:07 89 98 02/22/23 21:00 18 02/22/23 21:00 36.7 C 18 02/22/23 20:58 90 131/82 02/22/23 20:00 81 122/89 02/22/23 19:00 18 02/22/23 19:00 36.7 C 18 02/22/23 18:58 89 129/79 02/22/23 18:32 80 133/77 02/22/23 17:46 36.6 C 89 18 111/73 02/22/23 16:32 84 121/79 02/22/23 15:30 18 02/22/23 15:30 36.6 C 18 02/22/23 15:29 80 147/77 H Pain Intensity Bilateral Abdomen: Pain Intensity: 1 Bilateral Back: Pain Intensity: 5 Transfer of Care Handoff Completed per policy Notes Mental Status: alert / awake / arousable Patient Amnestic to Procedure: Yes Nausea / Vomiting: adequately controlled Pain: adequately controlled Airway Patency, RR, SpO2: stable & adequate BP & HR: stable & adequate Hydration State: stable & adequate Neuraxial Anesthesia: was administered and sensory block is resolving Anesthetic Complications: no major complications apparent
[2023-02-23] MEDS: LACTATED RINGER'S 1,000 ML IV SCH ×2 (19:25→23:06)
[2023-02-23] MEDS: DOCUSATE SODIUM 100 MG CAP PO SCH (20:35)
--- NOTE | 2023-02-23 22:12 | Obstetrical Progress Note ---
Date of Service <Marek Gant MD - Last Filed: 02/24/23 07:37> February 23, 2023 Assessment & Plan <Marek Gant MD - Last Filed: 02/24/23 07:37> (1) care following vaginal delivery: Plan 32 yo , status post C/S , day 1,on 02/23/23 - Pt is doing well clinically. Feels well today. Eating well, voiding well, ambulating well. Pain well controlled with PRN pain meds. - Routine care -- OOB, ambulation, diet progression as tolerated Vital Signs reviewed and WNL. (Tmax at 37.8) Hemoglobin Reviewed. 15.2 (02/23/23) (today). Blood Type: B+, GBS-, Rubella Immune. Encourage ambulation, monitor and control pain with Motrin PRN, resume regular diet, monitor lochia. Breast feeding encouraged. After discharge will have 6 week follow-up with Dr. Mccarthy. <Júnior Medina MD - Last Filed: 02/24/23 09:24> (1) care following vaginal delivery: Subjective <Marek Gant MD - Last Filed: 02/24/23 07:37> Ambulation: ambulating normally Voiding: no voiding problems and no incontinence (still has not had a BM, also has not eaten since C/S) Passing Gas:: Yes Diet Tolerance:: clear liquids (Pt is cleared for reg diet but has not progressed due to lack of appetite) Lochia:: Moderate Feeding Type:: breast feeding Current Pain Level(1-10): 5 (when pressing on the site, periumbilical pain) 32 yo F , s/p C/S, day 1 feeling some pain Constitutional: no fever or no chills Eyes: no diplopia or no worsening vision Respiratory: no cough or no dyspnea Cardiovascular: no chest pain or no dyspnea Gastrointestinal: no nausea, no vomiting or no diarrhea/loose stools Genitourinary (female): no dysuria (but Briggs just removed an hour ago) Integumentary: + rash (poison elsie from before) Physical Exam <Marek Gant MD - Last Filed: 02/24/23 07:37> Respiratory normal respiratory effort, lungs clear to auscultation Cardiovascular RRR, no murmur, no edema Gastrointestinal (Abdomen) normal bowel sounds, soft, nontender, no hepatosplenomegaly Inspection/Auscultation: + abdominal surgical incision Musculoskeletal Extremities: extremities normal to inspection (no calf pain or tenderness noted) Results & Data <Marek Gant MD - Last Filed: 02/24/23 07:37> Vital Signs (Past 12 Hours) Vital Signs Temp Pulse Pulse Resp BP BP Pulse Ox 02/23/23 19:00 20 97 02/23/23 18:30 18 100 02/23/23 17:45 20 100 02/23/23 16:30 20 99 02/23/23 15:40 18 98 02/23/23 15:40 36.9 C 98 H 18 101/66 98 02/23/23 14:32 36.9 C 18 02/23/23 14:02 105 H 18 129/61 02/23/23 13:22 18 02/23/23 13:12 18 02/23/23 13:02 18 02/23/23 12:52 18 02/23/23 13:33 18 02/23/23 12:42 18 02/23/23 12:32 37.2 C 115 H 20 98 02/23/23 11:20 37.5 C 02/23/23 15:03 100 H 96 02/23/23 14:58 96 02/23/23 14:58 109 H 02/23/23 14:58 100 H 130/59 L 02/23/23 14:53 105 H 97 02/23/23 14:52 106 H 132/59 L 02/23/23 14:48 103 H 96 02/23/23 14:45 95 H 94 02/23/23 14:43 98 H 95 02/23/23 14:42 102 H 139/63 02/23/23 14:38 98 H 96 02/23/23 14:33 107 H 96 02/23/23 14:32 109 H 99/57 L 02/23/23 14:28 111 H 96 02/23/23 14:23 106 H 96 02/23/23 14:22 112 H 91/35 L 02/23/23 14:18 109 H 95 02/23/23 14:13 105 H 96 02/23/23 14:12 105 H 129/61 02/23/23 14:08 108 H 96 02/23/23 14:03 109 H 95 02/23/23 14:02 107 H 126/58 L 02/23/23 13:58 110 H 95 02/23/23 13:53 102 H 126/56 L 96 02/23/23 13:48 104 H 96 02/23/23 13:43 106 H 96 02/23/23 13:42 96 H 117/65 02/23/23 13:38 109 H 97 02/23/23 13:33 98 H 96 02/23/23 13:32 103 H 114/58 L 02/23/23 13:28 105 H 96 02/23/23 13:23 106 H 97 02/23/23 13:22 105 H 117/59 L 02/23/23 13:18 108 H 97 02/23/23 13:13 106 H 98 02/23/23 13:12 117 H 118/66 02/23/23 13:08 115 H 98 02/23/23 13:02 100 02/23/23 13:02 101 H 02/23/23 13:02 101 H 110/56 L 02/23/23 12:57 102 H 100 02/23/23 12:52 109 H 97/54 L 99 02/23/23 12:47 102 H 99 02/23/23 12:42 100 02/23/23 12:42 107 H 02/23/23 12:42 103 H 96/52 L 02/23/23 12:37 102 H 100 02/23/23 12:32 111 H 92/50 L 02/23/23 11:22 122 H 100 02/23/23 11:20 127 H 80/49 L 02/23/23 11:17 119 H 87/51 L 99 02/23/23 11:12 110 H 99 02/23/23 11:11 108 H 108/59 L 02/23/23 11:07 112 H 100 02/23/23 11:02 115 H 100 02/23/23 10:57 116 H 100 02/23/23 10:52 118 H 99 02/23/23 10:47 116 H 98 02/23/23 10:42 109 H 100 02/23/23 10:37 113 H 100 02/23/23 10:30 20 02/23/23 10:30 20 02/23/23 10:32 118 H 100 02/23/23 10:27 111 H 100 02/23/23 10:22 111 H 99 02/23/23 10:17 107 H 100 02/23/23 10:12 110 H 100 O2 Del Method 02/23/23 19:00 02/23/23 18:30 02/23/23 17:45 02/23/23 16:30 02/23/23 15:40 02/23/23 15:40 Room Air 02/23/23 14:32 02/23/23 14:02 02/23/23 13:22 02/23/23 13:12 02/23/23 13:02 02/23/23 12:52 02/23/23 13:33 02/23/23 12:42 02/23/23 12:32 02/23/23 11:20 02/23/23 15:03 02/23/23 14:58 02/23/23 14:58 02/23/23 14:58 02/23/23 14:53 02/23/23 14:52 02/23/23 14:48 02/23/23 14:45 02/23/23 14:43 02/23/23 14:42 02/23/23 14:38 02/23/23 14:33 02/23/23 14:32 02/23/23 14:28 02/23/23 14:23 02/23/23 14:22 02/23/23 14:18 02/23/23 14:13 02/23/23 14:12 02/23/23 14:08 02/23/23 14:03 02/23/23 14:02 02/23/23 13:58 02/23/23 13:53 02/23/23 13:48 02/23/23 13:43 02/23/23 13:42 02/23/23 13:38 02/23/23 13:33 02/23/23 13:32 02/23/23 13:28 02/23/23 13:23 02/23/23 13:22 02/23/23 13:18 02/23/23 13:13 02/23/23 13:12 02/23/23 13:08 02/23/23 13:02 02/23/23 13:02 02/23/23 13:02 02/23/23 12:57 02/23/23 12:52 02/23/23 12:47 02/23/23 12:42 02/23/23 12:42 02/23/23 12:42 02/23/23 12:37 02/23/23 12:32 02/23/23 11:22 02/23/23 11:20 02/23/23 11:17 02/23/23 11:12 02/23/23 11:11 02/23/23 11:07 02/23/23 11:02 02/23/23 10:57 02/23/23 10:52 02/23/23 10:47 02/23/23 10:42 02/23/23 10:37 02/23/23 10:30 02/23/23 10:30 02/23/23 10:32 02/23/23 10:27 02/23/23 10:22 02/23/23 10:17 02/23/23 10:12 <Júnior Medina MD - Last Filed: 02/24/23 09:24> Co-Signing Physician Notes Patient seen with resident and agree with above findings and plan. Patient doing well. routine OB care
[2023-02-24] MEDS: KETOROLAC 30 MG/ML VIAL IV PRN (04:38)
[2023-02-24] MEDS: LACTATED RINGER'S 1,000 ML IV SCH ×3 (04:39→21:40)
[2023-02-24] MEDS ORDERED: KETOROLAC 30 MG/ML VIAL IV PRN (06:03)
[2023-02-24] MEDS ORDERED: PROMETHAZINE HCL 25 MG in SODIUM CHLORIDE 0.9% 50 ML IV PRN (06:03)
[2023-02-24] MEDS ORDERED: oxyCODONE/ACETAMINOPHEN 5mg/325mg TAB PO PRN (06:03)
[2023-02-24] MEDS ORDERED: diphenhydrAMINE 50 MG/ML VIAL IV PRN (06:03)
[2023-02-24] MEDS ORDERED: diphenhydrAMINE Capsule 25 MG CAP PO PRN (06:03)
[2023-02-24 07:29] LABS: Basophils # (auto) 0.05 K/uL (0-0.2); Basophils % (auto) 0.3 %; Eosinophils # (auto) 0.02 K/uL (0-0.50); Eosinophils % (auto) 0.1 %; Hematocrit (blood only) 33.3 % (37.0-47.0); Hemoglobin 11.9 g/dl (12.0-16.0); Immature Granulocytes # (auto) 0.07 K/uL (0.01-0.20); Immature Granulocytes % (auto) 0.4 %; Lymphocytes # (auto) 1.24 K/uL (1.2-3.4); Lymphocytes % (auto) 7.6 %; Mean Corpuscular Hemoglobin 31.6 pg (25.0-34.0); Mean Corpuscular Hgb Conc 35.7 g/dL (32.0-36.0); Mean Corpuscular Volume 88.6 fL (80.0-100.0); Mean Platelet Volume 11.8 fL (9.4-12.4); Monocytes # (auto) 1.02 K/uL (0.11-0.59); Monocytes % (auto) 6.2 %; Neutrophils # (auto) 13.94 K/uL (1.40-6.50); Neutrophils % (auto) 85.4 %; Platelet Count 143 K/uL (130-400); RDW Standard Deviation 45.1 fL (36.4-46.3); Red Blood Count 3.76 M/uL (4.20-5.40); White Blood Count 16.34 K/ul (4.8-10.8)
[2023-02-24] MEDS: PRENATAL VITAMIN 1 TAB PO SCH (08:45)
[2023-02-24] MEDS: FERROUS SULFATE 325 MG TAB PO SCH (08:45)
[2023-02-24] MEDS: IBUPROFEN 600 MG TAB PO PRN ×4 (08:45→21:40)
[2023-02-24] MEDS: SIMETHICONE 80 MG CHEW PO SCH ×4 (08:45→21:40)
[2023-02-24] MEDS: DOCUSATE SODIUM 100 MG CAP PO SCH ×2 (08:45→21:40)
[2023-02-24] MEDS ORDERED: bisacodyL 5 MG TABEC PO SCH (20:00)
--- NOTE | 2023-02-24 20:55 | Obstetrical Progress Note ---
Date of Service <Marek Gant MD - Last Filed: 02/25/23 07:19> February 24, 2023 Assessment & Plan <Marek Gant MD - Last Filed: 02/25/23 07:19> (1) care following delivery: Plan 32 yo , status post C/S , day 2,on 02/23/23 - Pt doing well clinically. Feels well today. Eating well, voiding well, ambulating well. Pain well controlled with PRN pain meds. - Routine care -- OOB, ambulation, diet progression as tolerated Vital Signs reviewed and WNL (Tmax at 37.8) except as noted: low BPs (83/54 on 02/24/23), mild tachycardia (HR 112) Hemoglobin Reviewed. 15.2 (02/23/23), 11.9 (02/24/23). Blood Type: B+, GBS-, Rubella Immune. Encourage ambulation, monitor and control pain with Motrin PRN, resume regular diet, monitor lochia. Breast feeding encouraged. After discharge will have 6 week follow-up with Dr. Mccarthy. Discharge orders discussed with patient and patient informed she will receive hard copy of these instructions. <Shannan Vance MD - Last Filed: 02/25/23 07:53> (1) care following delivery: Subjective <Marek Gant MD - Last Filed: 02/25/23 07:19> Ambulation: ambulating normally Voiding: no voiding problems and no incontinence (no BM yet though) Passing Gas:: Yes Diet Tolerance:: regular diet Lochia:: Moderate Feeding Type:: bottle feeding Current Pain Level(1-10): 1 32 yo F, , s/p C/S Constitutional: no fever or no chills Eyes: no diplopia or no worsening vision Respiratory: no cough or no dyspnea Cardiovascular: no chest pain, no dyspnea or no palpitations Gastrointestinal: no nausea, no vomiting or no diarrhea/loose stools Genitourinary (female): no dysuria (but Briggs just removed an hour ago) Integumentary: + rash (poison elsie from before) Physical Exam <Marek Gant MD - Last Filed: 02/25/23 07:19> Respiratory normal respiratory effort, lungs clear to auscultation Cardiovascular RRR, no murmur, no edema Gastrointestinal (Abdomen) normal bowel sounds, soft, nontender, no hepatosplenomegaly Inspection/Auscultation: + abdominal surgical incision Musculoskeletal Extremities: extremities normal to inspection (no calf pain or tenderness noted) Results & Data <Marek Gant MD - Last Filed: 02/25/23 07:19> Vital Signs (Past 12 Hours) Vital Signs Temp Pulse Resp BP Pulse Ox O2 Del Method 02/24/23 19:18 36.9 C 98 H 20 103/55 L 97 Room Air 02/24/23 16:00 36.3 C L 96 H 18 95/69 L 98 Room Air 02/24/23 11:30 36.7 C 93 H 18 94/64 L 97 Room Air <Shannan Vance MD - Last Filed: 02/25/23 07:53> Co-Signing Physician Notes Resident Physician Supervision Note: I interviewed and examined the patient. Discussed with Dr. Brooks and agree with findings and plan as documented in the note. Any exceptions or clarifications are listed here: POD2 from p[facility], doing well. VSS, exam benign and wnl, incision c/d/i. Desires dc home, stable to do so Documented By: Shannan Vance MD
[2023-02-25] MEDS: IBUPROFEN 600 MG TAB PO PRN ×2 (04:07→08:17)
[2023-02-25] MEDS: LACTATED RINGER'S 1,000 ML IV SCH (05:34)
[2023-02-25 06:41] LABS: Hematocrit (blood only) 31.7 % (37.0-47.0); Hemoglobin 11.1 g/dl (12.0-16.0)
[2023-02-25] MEDS: SIMETHICONE 80 MG CHEW PO SCH (08:17)
[2023-02-25] MEDS: FERROUS SULFATE 325 MG TAB PO SCH (08:17)
[2023-02-25] MEDS: DOCUSATE SODIUM 100 MG CAP PO SCH (08:17)
[2023-02-25] MEDS: PRENATAL VITAMIN 1 TAB PO SCH (08:17)
[2023-02-25] MEDS ORDERED: bisacodyL 10 MG SUPP PR PRN (12:29)
--- NOTE | 2023-02-28 18:45 | Discharge Summary ---
Date of Service February 28, 2023 Admission HPI Per Admitting Provider Patient is a 32-year-old 1 P0 female EDC of 02/23/2023 who presents for induction of labor because of GDM on insulin. Blood sugar sugars have been well controlled during the and testing has been reassuring. The is in the 97th percentile for estimated weight on the most recent growth scan. The was also complicated by polyhydramnios But it is in the mild range. GBS is negative. She received cervical balloon last evening for unfavorable cervix. The balloon delivered this morning at approximately 830. Discharge Data Consultations 02/22/23 08:01 Consult Anesthesiology Stat Procedures Performed Operation Date: 02/23/23 11:15 Actual Procedures p Section in LD with result of live male child at 1145 - Júnior Medina MD Hospital Course (1) care following delivery: Patient underwent prime section by request. Procedure performed without difficulty or complication. Patient had no complications or issues arise in her course. Remained in-house till day 2 and was discharged home in stable condition. Provided with written and discharge instructions. Coding Level of Care Code None Diagnoses care following delivery Z39.2
== END 2023-02-25 10:40 | disposition home or self-care (01) | DRG 788 ==
LOC: 4S1 07:59 → 4E2 02-23 15:16